=== PATIENT | female | born 1990 ===

== ENCOUNTER 2016-10-10 16:20 | Emergency (ER) | payer MEDICAID ==
[2016-10-10 16:56] VITALS: RESP 18; TEMP 98.4
--- NOTE | 2016-10-10 17:22 | C.PDOC ---
History Of Present Illness 25 yr old female presents to the ER for evaluation of a sore throat for 1 day. 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 Patient reports of chills and body aches. Patient denies fever, cough, chest pain, SOB, nausea, vomiting, headache, weakness or numbness. Time Seen by Provider: 10/10/16 16:58 Chief Complaint (Nursing): ENT Problem History Per: Patient History/Exam Limitations: None Onset/Duration Of Symptoms: Days (1) Current Symptoms Are (Timing): Still Present Past Medical History Reviewed: Historical Data, Nursing Documentation, Vital Signs Vital Signs: Last Vital Signs Temp 98.4 F 10/10/16 16:50 Pulse 84 10/10/16 16:50 Resp 18 10/10/16 16:50 BP 103/65 10/10/16 16:50 Pulse Ox 100 10/10/16 17:23 Family History: States: No Known Family Hx - Social History Hx Alcohol Use: No Hx Substance Use: No - Immunization History Hx Tetanus Toxoid Vaccination: No Hx Influenza Vaccination: No Hx Pneumococcal Vaccination: No Review Of Systems Except As Marked, All Systems Reviewed And Found Negative. Constitutional: Positive for: Chills, Other ((+) Body aches). Negative for: Fever ENT: Positive for: Throat Pain Gastrointestinal: Negative for: Nausea, Vomiting Neurological: Negative for: Weakness, Numbness, Headache Physical Exam - Physical Exam Appears: Non-toxic, No Acute Distress Skin: Warm, Dry, No Rash Head: Atraumatic, Normacephalic Eye(s): bilateral: Normal Inspection, PERRL, EOMI Oral Mucosa: Moist Throat: Erythema (Mild), No Exudate, No Drooling Neck: Normal, Normal ROM, Supple Chest: Symmetrical, No Tenderness Cardiovascular: Rhythm Regular, No Murmur Respiratory: Normal Breath Sounds, No Rales, No Rhonchi, No Stridor, No Wheezing Gastrointestinal/Abdominal: Normal Exam, Soft, No Tenderness, No Guarding, No Rebound Extremity: Normal ROM, No Swelling Neurological/Psych: Oriented x3, Normal Speech, Normal Motor ED Course And Treatment O2 Sat by Pulse Oximetry: 100 Medical Decision Making Medical Decision Making: PLAN: * Motrin PO * Tylenol PO Disposition Counseled Patient/Family Regarding: Studies Performed, Diagnosis, Need For Followup - Disposition Disposition: HOME/ ROUTINE Disposition Time: 17:37 Condition: STABLE Additional Instructions: Follow up with your doctor. Take Motrin for pain. If sore throat persists, take antibiotics as indicated. Return to the ED with any further concerns. Call Dr. Reagan tomorrow for strep results. [phone] Prescriptions: Ibuprofen [Motrin] 600 mg PO TID #15 tab Penicillin VK [Pen-Vee K] 2 tab PO BID #28 tab Instructions: Pharyngitis (ED) Forms: General Discharge Instructions - POA Present On Arrival: None - Clinical Impression Clinical Impression: Pharyngitis - Scribe Statement The provider has reviewed the documentation as recorded by the Mukesh Luna Provider Attestation: All medical record entries made by the Mukesh were at my direction and personally dictated by me. I have reviewed the chart and agree that the record accurately reflects my personal performance of the history, physical exam, medical decision making, and the department course for this patient. I have also personally directed, reviewed, and agree with the discharge instructions and disposition.
[2016-10-10 18:08] VITALS: BP 122/75; PULSE 82; O2SAT 98
== END 2016-10-10 18:09 | disposition home or self-care (01) ==
LOC: C.ER 16:20
DX: J02.0 Streptococcal pharyngitis (principal); B95.0 Streptococcus, group A, as the cause of diseases classified elsewhere

== ENCOUNTER 2017-08-12 16:37 | Emergency (ER) | payer MEDICAID ==
[2017-08-12 17:16] VITALS: BMI 20.9
[2017-08-12 17:20] VITALS: BP 106/75; PULSE 86; TEMP 98.1; O2SAT 100
--- NOTE | 2017-08-12 17:47 | C.PDOC ---
History Of Present Illness 45 y/o male presents to the ER complaining of runny nose,cough, sore throat, and body aches which began 3 days ago. Patient denies having nausea, vomiting, diarrhea, and abdominal pain. Patient does not have any other complaints. Time Seen by Provider: 08/12/17 17:38 Chief Complaint (Nursing): Flu-like Symptoms History Per: Patient History/Exam Limitations: no limitations Onset/Duration Of Symptoms: Days Current Symptoms Are (Timing): Still Present Associated Symptoms: Sore Throat, Cough. denies: Nausea, Vomiting, Diarrhea Severity: Moderate Past Medical History Reviewed: Historical Data, Nursing Documentation, Vital Signs Vital Signs: Last Vital Signs Temp 98.1 F 08/12/17 17:16 Pulse 86 08/12/17 17:16 Resp 18 08/12/17 17:57 BP 106/75 08/12/17 17:16 Pulse Ox 100 08/12/17 19:47 - Medical History PMH: No Chronic Diseases Surgical History: No Surg Hx Family History: States: No Known Family Hx - Social History Hx Alcohol Use: Yes Hx Substance Use: No - Immunization History Hx Tetanus Toxoid Vaccination: No Hx Influenza Vaccination: No Hx Pneumococcal Vaccination: No Review Of Systems Except As Marked, All Systems Reviewed And Found Negative. Constitutional: Positive for: Malaise. Negative for: Fever, Chills ENT: Positive for: Nose Discharge, Throat Pain Respiratory: Positive for: Cough Gastrointestinal: Negative for: Nausea, Vomiting, Diarrhea Physical Exam - Physical Exam Appears: Non-toxic, No Acute Distress Skin: Normal Color, Warm Head: Atraumatic, Normacephalic Eye(s): bilateral: Normal Inspection, PERRL Ear(s): Bilateral: Normal Nose: Normal Oral Mucosa: Moist Throat: Erythema (mild erythema), No Exudate Neck: Supple Chest: Symmetrical Cardiovascular: Rhythm Regular Respiratory: Normal Breath Sounds, No Accessory Muscle Use, No Rales, No Rhonchi , No Wheezing Extremity: Normal ROM Neurological/Psych: Oriented x3, Normal Speech, Normal Cognition, Normal Motor, Normal Sensation ED Course And Treatment O2 Sat by Pulse Oximetry: 100 (RA) Pulse Ox Interpretation: Normal Progress Note: Patient discharged with prescriptions for Tessalon Perles for cough and told to follow up with PCP in 1-2 days. Disposition Counseled Patient/Family Regarding: Diagnosis, Need For Followup, Rx Given - Disposition Referrals: [facility] [Outside] Disposition: HOME/ ROUTINE Disposition Time: 17:50 Condition: STABLE Additional Instructions: FOLLOW UP WITH YOUR DOCTOR IN 1-2 DAYS USE MEDICATIONS NEEDED DRINK PLENTY OF FLUIDS RETURN TO ER IF SYMPTOMS WORSEN Prescriptions: Benzonatate [Tessalon Perles] 100 mg PO BID PRN #15 sgl PRN Reason: Cough Naproxen 375 mg PO BID PRN #20 tablet PRN Reason: pain Phenol/Glycerin [Chloraseptic Max [place]] 1 spray MM Q6 PRN #1 spray PRN Reason: THROAT PAIN Instructions: Viral Syndrome (ED) Forms: [facility] (Romansh), Work Excuse Print Language: TAJIK - Clinical Impression Clinical Impression: Viral syndrome, Upper respiratory infection - Scribe Statement The provider has reviewed the documentation as recorded by the Mukesh Hudson Provider Attestation: All medical record entries made by the Darrellibedmundo were at my direction and personally dictated by me. I have reviewed the chart and agree that the record accurately reflects my personal performance of the history, physical exam, medical decision making, and the department course for this patient. I have also personally directed, reviewed, and agree with the discharge instructions and disposition.
[2017-08-12 17:58] VITALS: RESP 18
== END 2017-08-12 17:58 | disposition home or self-care (01) ==
LOC: C.ER 16:37
DX: J06.9 Acute upper respiratory infection, unspecified (principal); B34.9 Viral infection, unspecified

== ENCOUNTER 2017-12-31 11:42 | Emergency (ER) | payer MEDICAID ==
[2017-12-31 11:42] VITALS: BMI 20.9
[2017-12-31 11:47] VITALS: BP 124/74; PULSE 90; RESP 18; TEMP 98.6; O2SAT 100
[2017-12-31] MEDS ORDERED: Tdap Vaccine 0.5 ml Vial (10-64 yrs) IM ONE ×2 (12:26→12:58)
--- NOTE | 2017-12-31 12:45 | C.PDOC ---
History Of Present Illness 27 y/o F p/w laceration to hand suffered 40 minutes ago. Patient states she was about to stab an avocado pit with a clean kitchen knife when she slipped and punctured her L palm with the knife. Denies numbness, motor weakness, active bleeding. Time Seen by Provider: 12/31/17 11:54 Chief Complaint (Nursing): Abnormal Skin Integrity Past Medical History Vital Signs: Last Vital Signs Temp 98.6 F 12/31/17 11:44 Pulse 90 12/31/17 11:44 Resp 18 12/31/17 11:44 BP 124/74 12/31/17 11:44 Pulse Ox 100 12/31/17 12:56 Family History: States: No Known Family Hx - Social History Hx Alcohol Use: Yes Hx Substance Use: No - Immunization History Hx Tetanus Toxoid Vaccination: No Hx Influenza Vaccination: No Hx Pneumococcal Vaccination: No Review Of Systems Except As Marked, All Systems Reviewed And Found Negative. Constitutional: Negative for: Fever Gastrointestinal: Negative for: Vomiting Physical Exam - Physical Exam Additional Physical Exam Comments: Gen: NAD CV: Radial pulse 2+, cap refill < 2 seconds Skin: 3mm laceration, clean to L hand palmar surface Extremities: No swelling, FROM of all digits and wrist Neuro: Alert, no focal deficit ED Course And Treatment O2 Sat by Pulse Oximetry: 100 Laceration - Laceration Repair No standard instances Wound Length (In cm): .3 Description Of Wound: Linear Wound Cleansed With: Betadine, Sterile Saline Anesthesia: Lidocaine 2% Wound Examination: Irrigated With Saline, No FB With Wound Exploration, No Tendon Injury With Wound Exploration Wound Closure: Skin Glue Wound Complexity: Simple Disposition - Disposition Referrals: Alejandro Bass MD [Medical Doctor] - Disposition: HOME/ ROUTINE Disposition Time: 12:53 Condition: STABLE Instructions: Laceration Repair With Glue (DC) Forms: [employer] (Mongolian), Work Excuse - Clinical Impression Clinical Impression: Laceration of hand
== END 2017-12-31 13:08 | disposition home or self-care (01) ==
LOC: C.ER 11:42
DX: S61.412A Laceration without foreign body of left hand, initial encounter (principal); W26.0XXA Contact with knife, initial encounter; Z23 Encounter for immunization

== ENCOUNTER 2018-05-13 06:30 | Day surgery (SDC) | payer MEDICAID ==
[2018-05-13] MEDS ORDERED: ceFAZolin IV 1 gm in Dextrose 1 GM/50 ML BAG IVPB ONE (07:18)
[2018-05-13] MEDS ORDERED: Lidocaine/Epinephrine 1% 1:100000 10 ML IJ ONE (07:19)
[2018-05-13] MEDS ORDERED: Oxymetazoline 0.05% Nasal Spray (30 ml) NS ONE (07:19)
[2018-05-13] MEDS ORDERED: Acetaminophen-Codeine 300/30 mg Tab PO PRN (08:24)
[2018-05-13] MEDS ORDERED: Dextrose 5%/0.45% NS 1,000 ML IV SCH (08:30)
[2018-05-13] MEDS ORDERED: Propofol 10 mg/ml Inj (20 ML) ONE (08:38)
[2018-05-13] MEDS ORDERED: Succinylcholine Chloride 20 mg/ml Syr (5 ml) IV ONE (08:47)
[2018-05-13] MEDS ORDERED: EPINEPHrine 1:1000 Nasal Sol(30mL) ONE (08:48)
[2018-05-13 10:04] VITALS: TEMP 98
[2018-05-13 10:23] VITALS: PULSE 85
[2018-05-13 10:50] VITALS: BP 111/68; RESP 18; O2SAT 100
--- NOTE | 2018-05-13 20:50 | OP ---
PROCEDURE DATE: 05/13/2018 PREOPERATIVE DIAGNOSIS: Nasopharyngeal mass. POSTOPERATIVE DIAGNOSIS: Nasopharyngeal mass. PROCEDURE: Endoscopic nasopharyngeal mass biopsy. SIGNIFICANT FINDINGS: Nasopharyngeal mass. DESCRIPTION OF THE PROCEDURE: The patient was brought into the room and placed in supine position. Anesthesia was initiated through an ET tube. The patient was draped in the usual manner. Adrenaline-soaked pledgets were inserted into the nasal cavity, remained there for five minutes and removed. A 0-degree scope was inserted into nasal cavity and passed into the nasopharynx. Nasopharyngeal mass was noted. Forceps was used to take a biopsy. Bleeding was controlled using adrenaline-soaked pledgets. Scope was removed. The patient was taken off anesthesia and taken to the recovery room in stable manner. Matthias Farmer MD
== END 2018-05-13 10:51 | disposition home or self-care (01) ==
LOC: C.SDS 06:30
PROVIDERS: ATTEND Otolaryngology
DX: J39.2 Other diseases of pharynx (principal); J34.9 Unspecified disorder of nose and nasal sinuses
CPT/HCPCS: 31237; 88307; J0690; J2704; J3010